=== PATIENT | female | born 1995 | race Caucasian/White ===

== ENCOUNTER 2019-03-02 08:59 | Emergency (ER) | payer BC ==
[2019-03-02 09:10] VITALS: BP 100/61
--- NOTE | 2019-03-02 09:44 | UC ---
HPI Wound/Suture Re-check - HPI Summary HPI Summary: 23-year-old female who presents for suture removal. Patient had surgery to have a small tumor on her elbow in [place] 11 days ago. Came to remove sutures. Patient reports continued pain at the site, but no fevers, drainage from the area, redness to the area. - History Of Current Complaint Chief Complaint: UCLaceration Stated Complaint: STITCHES REMOVAL Time Seen by Provider: 03/02/19 09:12 Hx Last Menstrual Period: 02/25/19 Pain Intensity: 0 Pain Scale Used: 0-10 Numeric - Allergies/Home Medications Allergies/Adverse Reactions: Allergies Allergy/AdvReac Type Severity Reaction Status Date / Time dextromethorphan Allergy Altered Verified 03/02/19 09:02 Mental Status Home Medications: Home Medications Retin-A 03/02/19 [History] Spironolactone 1 tab PO DAILY 03/02/19 [History Confirmed 03/02/19] PMH/Surg Hx/FS Hx/Imm Hx Previously Healthy: Yes - Surgical History Surgical History: Yes - Small tumor removed from left elbow - Family History Known Family History: Positive: Non-Contributory - Social History Alcohol Use: Rare Alcohol Amount: 4 drinks last night Substance Use Type: None Smoking Status (MU): Never Smoked Tobacco Review of Systems All Other Systems Reviewed And Are Negative: Yes Skin: Positive: Other - Laceration Musculoskeletal: Positive: Arthralgia Physical Exam - Summary Physical Exam Summary: General: Well appearing, no distress Skin: Well-healed 2 cm laceration to the posterior elbow with no surrounding erythema or drainage Cardiovascular: Skin is well perfused Pulmonary: No respiratory distress, no tachypnea Abdomen: Non-distended MSK: Full range of motion of the left elbow with no joint effusions noted Psych: Normal affect Neuro: A&Ox3 Vital Signs: Initial Vital Signs Temp 36.4 C 03/02/19 09:07 Pulse 75 03/02/19 09:07 Resp 15 03/02/19 09:07 BP 100/61 03/02/19 09:07 Pulse Ox 100 03/02/19 09:07 Procedures - Laceration/Wound Repair 1 Location: upper extremity Description: Linear Number of Sutures: 6 - 6 sutures removed Course/Dx - Course Course Of Treatment: 23-year-old female who presents for suture removal. 6 sutures were removed. Wound is well healing without evidence of infection. - Diagnosis Provider Diagnosis: Visit for suture removal Discharge - Sign-Out/Discharge Documenting (check all that apply): Patient Departure All imaging exams completed and their final reports reviewed: No Studies - Discharge Plan Condition: Stable Disposition: HOME Referrals: [facility] [Outside] No Primary Care Phys,NOPCP [Primary Care Provider] - Additional Instructions: You were seen for the removal of stitches. Please follow-up with your surgeon as scheduled. Seek medical attention for drainage from the area, fevers, redness of the area or if you are concerned. - Billing Disposition and Condition Condition: STABLE Disposition: Home
== END 2019-03-02 09:38 | disposition home or self-care (01) ==
LOC: UCEAST 08:59
DX: Z48.02 Encounter for removal of sutures (principal)
CPT/HCPCS: 99201; G0463